=== PATIENT | female | born 1975 | race American Indian/Alaskan Native ===

== ENCOUNTER 2017-10-28 11:35 | Emergency (ER) | payer MEDICAID ==
[2017-10-28 14:06] VITALS: BP 140/90
[2017-10-28] MEDS ORDERED: MOTRIN PO ONE (16:13)
[2017-10-28 16:32] LABS: Basophils # (Auto) 0.1 K/mm3 (0.0-0.1); Basophils % (Auto) 0.9 % (0.0-1.8); Eosinophils # (Auto) 0.1 K/mm3 (0.0-0.4); Eosinophils % (Auto) 0.4 % (0.0-4.3); Hematocrit 41.2 % (30.3-42.9); Hemoglobin 13.2 gm/dl (10.1-14.3); Lymphocytes % (Auto) 13.4 % (13.4-35.0); Mean Corpuscular HGB Conc 32 % (30-34); Mean Corpuscular Volume 79 fl (79-97); Monocytes % (Auto) 6.9 % (0.0-7.3); Platelet Count 372 K/mm3 (140-440); Red Blood Count 5.21 M/mm3 (3.65-5.03); Red Cell Distribution Width 15.7 % (13.2-15.2)
[2017-10-28 16:36] LABS: Mean Corpuscular Hemoglobin 25 pg (28-32)
--- NOTE | 2017-10-28 17:03 | Emergency Department Report ---
Upper Extremity - HPI Chief Complaint: Extremity Injury, Upper Stated Complaint: RIGHT ARM SWOLLEN Time Seen by Provider: 10/28/17 16:13 Upper Extremity: Right Hand Occurred When: Today Severity: severe Symptoms: Yes Pain with Movement, Yes Swelling, No Deformity, No Limited Range of Movement, No Numbness, No Weakness, No Bruising/Ecchymosis (erythematous), No Laceration or Abrasion Other History: 41-year-old -[place] female with a past medical history of hypertension comes in today for complaint of her right hand swollen. Patient reports that she woke up this morning with her right hand swelling and pain. She denies any injuries. She reports she started feeling it on Saturday. Patient denies any trauma. She takes lisinopril for hypertension. ED Review of Systems ROS: Stated complaint: RIGHT ARM SWOLLEN Other details as noted in HPI Constitutional: denies: chills, fever Eyes: denies: eye pain, eye discharge, vision change ENT: denies: ear pain, throat pain Respiratory: denies: cough, shortness of breath, wheezing Cardiovascular: denies: chest pain, palpitations Endocrine: no symptoms reported Gastrointestinal: denies: abdominal pain, nausea, diarrhea Genitourinary: denies: urgency, dysuria, discharge Musculoskeletal: joint swelling, arthralgia Skin: denies: rash, lesions Neurological: denies: headache, weakness, paresthesias Psychiatric: denies: anxiety, depression Hematological/Lymphatic: denies: easy bleeding, easy bruising ED Past Medical Hx - Past Medical History Previous Medical History?: No - Surgical History Past Surgical History?: No - Social History Smoking Status: Never Smoker Substance Use Type: Alcohol - Medications Home Medications: Home Medications Medication Instructions Recorded Confirmed Last Taken Type Ibuprofen 800 mg PO TID #30 tablet 10/28/17 Unknown Rx Upper Extremity Exam - Exam General: Vital signs noted. No distress. Alert and acting appropriately. Shoulder Exam: No Shoulder Tenderness Wrist: No Wrist Tenderness Hand: Yes Hand Tenderness, Yes Hand Deformity (swelling), Yes Digit Tenderness ( tenderness to the index finger proximal metacarpal), Yes Normal ROM in Digit(s) , No Tendon Dysfunction CMS Exam: Yes Normal Distal Pulses, Yes Normal Capillary Refill, Yes Normal Distal Sensation ED Course Vital Signs 10/28/17 14:04 Temperature 97.8 F Pulse Rate 75 Respiratory 16 Rate Blood Pressure 140/90 O2 Sat by Pulse 100 Oximetry ED Medical Decision Making - Lab Data Result diagrams: 10/28/17 16:21 10/28/17 16:21 - Medical Decision Making Patient's been evaluated by this provider Kala. Ibuprofen was given to the patient's CBC CMP uric acid was ordered an x-ray of the end. Waiting results. Critical care attestation.: If time is entered above; I have spent that time in minutes in the direct care of this critically ill patient, excluding procedure time. ED Disposition Clinical Impression: Arthritis, Right hand pain Disposition: DC-01 TO HOME OR SELFCARE Is pt being admited?: No Does the pt Need Aspirin: No Condition: Stable Additional Instructions: You can take ibuprofen for pain and swelling control. Please follow-up with her primary care provider for further evaluation. Prescriptions: Ibuprofen 800 mg PO TID #30 tablet Referrals: PRIMARY CARE, [Primary Care Provider] - 3-5 Days Forms: Work/School Release Form(ED)
[2017-10-28 17:24] LABS: Alanine Aminotransferase 13 units/L (7-56); Albumin 4.4 g/dL (3.9-5); BUN/Creatinine Ratio 20; Blood Urea Nitrogen 12 mg/dL (7-17); Calcium 9.7 mg/dL (8.4-10.2); Hemolysis Index 7; Uric Acid 4.3 mg/dL (3.5-7.6)
--- NOTE | 2017-10-28 18:17 | XRay Report ---
FINAL REPORT EXAM: XR HAND 2V RT HISTORY: right first index tenderness and swelling TECHNIQUE: Two views right hand PRIORS: None. FINDINGS: There is some mild degenerative change at the trapezium 1st metacarpal joint space with joint space narrowing and small marginal osteophyte. Carpal bones maintain normal alignment. No acute fracture is identified. No dislocation seen. 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
== END 2017-10-28 18:39 | disposition home or self-care (01) ==
LOC: ED 11:35
DX: M79.641 Pain in right hand (principal)
CPT/HCPCS: 36415; 80053; 84550; 85025; 99283